=== PATIENT | female | born 1950 | race Two or more races ===

== ENCOUNTER 2020-04-28 07:54 | Inpatient (IN) | payer OTHER ==
[~2020-04-28] VITALS: Ht 160 cm; Wt 54.4 kg
[2020-04-28] MEDS ORDERED: LEVOTHYROXINE88 MCG PO (08:04)
[2020-04-28] MEDS ORDERED: GLIMEPIRIDE2 M1 PO (08:04)
[2020-04-28] MEDS ORDERED: AMLODIPINE-BEN1 EAC4 PO (08:04)
[2020-04-28] MEDS ORDERED: ATORVASTATIN CA20 MG PO (08:04)
[2020-04-28] MEDS ORDERED: ACID CONTROLLER20 MG PO (08:05)
[2020-04-28] MEDS ORDERED: CHOLESTYRAMINE L4 GM PO (08:05)
[2020-04-28] MEDS ORDERED: SUCRALFATE1 GM PO (08:06)
[2020-05-02] MEDS ORDERED: LEVSIN/SL0.125 MG SL (09:33)
[2020-05-02] MEDS ORDERED: APETIGEN-PLUS1 EACH PO (09:33)
[2020-05-02] MEDS ORDERED: INTESTINEX680 M1 PO (09:33)
== END 2020-05-02 11:15 | disposition home or self-care (01) | DRG 392 ==
LOC: ER 07:54 → SURH 14:46 → SEC-K 14:46 → SURH 16:16
PROVIDERS: ADMIT Surgery; ATTEND Surgery
PROC: BW21Y0Z Computerized Tomography (CT Scan) of Abdomen and Pelvis using Other Contrast, Unenhanced and Enhanced (ICD-10-PCS; 2020-04-28)
PROC: 0DBH8ZX Excision of Cecum, Via Natural or Artificial Opening Endoscopic, Diagnostic (ICD-10-PCS; principal; 2020-04-30)
DX: K57.30 Diverticulosis of large intestine without perforation or abscess without bleeding (principal); D12.0 Benign neoplasm of cecum; R10.31 Right lower quadrant pain; R63.4 Abnormal weight loss; R31.0 Gross hematuria; E11.9 Type 2 diabetes mellitus without complications; Z20.828 Contact with and (suspected) exposure to other viral communicable diseases; Z79.4 Long term (current) use of insulin